=== PATIENT | female | born 1950 | race Caucasian/White ===

== ENCOUNTER 2016-07-20 14:31 | Emergency (ER) | payer OTHER ==
[~2016-07-20] VITALS: Ht 160 cm; Wt 67.5 kg
[~2016-07-20 14:31] MED LIST: ACYCLOVIR400 MG PO; ALLOPURINOL300 MG PO; ATORVASTATIN CA10 MG PO; LO-DOSE ASPIRIN81 M1 PO; ONCE DAILY1 EACH PO; VENLAFAXINE HCL75 M3 PO; VITAMIN D400 UNI1 PO
[2016-07-20 15:17] LABS: HEMATOCRIT 39.4 % (36.0-46.0); MCH 31.9 PG (29.0-34.0); MCHC 33.8 G/DL (30.0-36.0); MCV 94.5 FL (83-99); MEAN PLAT.VOLUME 8.3 uM^3 (9.5-12.4); PLATELET COUNT 241 K/uL (156-360); RBC DIS.WIDTH-CV 13.2 % (11.8-14.6); RBC DIS.WIDTH-SD 45.5 % (39-53); RED BLOOD COUNT 4.17 M/uL (3.80-5.20); WHITE BLOOD COUNT 4.7 K/uL (4.1-10.2)
[2016-07-20 15:27] LABS: CHLORIDE 105 mEq/L (99-109); POTASSIUM 3.9 mEq/L (3.7-5.4); SODIUM 141 mEq/L (136-147)
[2016-07-20 15:29] LABS: GLUCOSE 98 mg/dL (70-99)
[2016-07-20 15:30] LABS: ANION GAP 11 MEQ/L (2-14)
[2016-07-20 15:31] LABS: TOTAL BILIRUBIN 0.4 mg/dL (0.0-1.0)
[2016-07-20 15:33] LABS: ALKALINE PHOSPHATASE 49 IU/L (3-129); GFR ESTIMATE (CALCULATED) > 59 mL/min/
[2016-07-20 15:34] LABS: UREA NITROGEN (BUN) 8 mg/dL (9-23)
[2016-07-20 17:50] LABS: ADD MIUA? YES; BILIRUBIN NEGATIVE; BLOOD SMALL; COLOR STRAW ((YELLOW)); GLUCOSE (STRIP) NEGATIVE; KETONES 5; LEUKOCYTES TRACE; NITRITE NEGATIVE; PROTEIN (STRIP) NEGATIVE; SPECIFIC GRAVITY 1.004 (1.000-1.030); UROBILINOGEN 0.2 MG/DL (0.2-1.0)
[2016-07-20 17:53] LABS: BACTERIA NONE SEEN /HPF; EPITHELIAL CELLS RARE /HPF; MUCUS NONE SEEN /LPF; RED BLOOD CELLS 0-5 /HPF (0-5); UCUL ADDED? NO; WHITE BLOOD CELLS 0-5 /HPF (0-5)
[2016-07-20 18:08] VITALS: BP 120/59
== END 2016-07-20 18:09 | disposition home or self-care (01) ==
LOC: EME 14:31
DX: R68.2 Dry mouth, unspecified (principal); R63.0 Anorexia; G25.1 Drug-induced tremor; R11.0 Nausea; F19.982 Other psychoactive substance use, unspecified with psychoactive substance-induced sleep disorder; R35.0 Frequency of micturition; T43.215A Adverse effect of selective serotonin and norepinephrine reuptake inhibitors, initial encounter; F41.1 Generalized anxiety disorder; Z85.72 Personal history of non-Hodgkin lymphomas
CPT/HCPCS: 80053; 81003; 85027; 99281; 99284

== ENCOUNTER 2016-08-22 10:50 | Inpatient (IN) | payer OTHER ==
[~2016-08-22] VITALS: Ht 160 cm; Wt 67.0 kg
[2016-08-22 11:29] LABS: ADD MIUA? NO; BILIRUBIN NEGATIVE; BLOOD NEGATIVE; COLOR YELLOW ((YELLOW)); GLUCOSE (STRIP) NEGATIVE; KETONES NEGATIVE; LEUKOCYTES NEGATIVE; NITRITE NEGATIVE; PROTEIN (STRIP) NEGATIVE; SPECIFIC GRAVITY 1.005 (1.000-1.030); UCUL ADDED? NO; UROBILINOGEN 0.2 MG/DL (0.2-1.0)
[2016-08-22 11:38] LABS: AMPHETAMINE NEGATIVE (500 ng/mL); BARBITURATES NEGATIVE (200 ng/mL); BENZODIAZEPINES PRESUMPTIVE POSITIVE (150 ng/mL); COCAINE NEGATIVE (150 ng/mL); INTERNAL CONTROLS VALID? YES; METHADONE NEGATIVE (200 ng/mL); METHAMPHETAMINE NEGATIVE (500 ng/mL); OPIATES (MORPHINE) NEGATIVE (100 ng/mL); OXYCODONE NEGATIVE (100 ng/mL); PHENCYCLIDINE NEGATIVE (25 ng/mL); PROPOXYPHENE NEGATIVE (300 ng/mL); THC CANNABINOIDS NEGATIVE (50 ng/mL); TRICYCLIC ANTIDEPRESSANTS NEGATIVE (300 ng/mL)
[2016-08-22 11:39] LABS: ADD MEDTOX COMMENT Y
[2016-08-22 11:51] LABS: EOSINOPHIL (%) 0.8 % (0-5); HEMATOCRIT 40.2 % (36.0-46.0); IMMATURE GRANULOCYTE (%) 0.4 % (0.0-0.7); INSTRUMENT ABS NEUTROPHIL CT 3.9 K/uL; LYMPHOCYTE COUNT 0.3 K/uL (1.0-2.8); MCH 31.8 PG (29.0-34.0); MCHC 33.1 G/DL (30.0-36.0); MCV 96.2 FL (83-99); MEAN PLAT.VOLUME 8.6 uM^3 (9.5-12.4); MONOCYTE (%) 9.7 % (3-12); MONOCYTE COUNT 0.5 K/uL (0-0.8); NEUTROPHIL (%) 81.5 % (45-76); NEUTROPHIL COUNT 3.9 K/uL (1.8-6.4); PLATELET COUNT 223 K/uL (156-360); RBC DIS.WIDTH-CV 13.6 % (11.8-14.6); RBC DIS.WIDTH-SD 48.3 % (39-53); RED BLOOD COUNT 4.18 M/uL (3.80-5.20); WHITE BLOOD COUNT 4.7 K/uL (4.1-10.2)
[2016-08-22 12:00] LABS: CHLORIDE 107 mEq/L (99-109); POTASSIUM 4.5 mEq/L (3.7-5.4); SODIUM 139 mEq/L (136-147)
[2016-08-22 12:03] LABS: GLUCOSE 94 mg/dL (70-99)
[2016-08-22 12:04] LABS: ANION GAP 10 MEQ/L (2-14); TOTAL BILIRUBIN 0.4 mg/dL (0.0-1.0)
[2016-08-22 12:06] LABS: GFR ESTIMATE (CALCULATED) > 59 mL/min/; SERUM ETHYL ALCOHOL < 10 mg/dL
[2016-08-22 12:07] LABS: ALKALINE PHOSPHATASE 47 IU/L (3-129)
[2016-08-22 12:08] LABS: UREA NITROGEN (BUN) 9 mg/dL (9-23)
[2016-08-22 12:10] LABS: SALICYLATE < 5.0 MG/DL (15-30)
[2016-08-22 12:11] LABS: CREATINE KINASE 139 IU/L (1-294); TOTAL CK 139 IU/L (1-294)
[2016-08-22 12:12] LABS: TROP-I INTERPRETATION NEGATIVE; TROPONIN-I < 0.01 ng/mL (0.0-0.30)
[2016-08-22 12:16] LABS: CK-MB 2.6 ng/mL (0.0-4.9)
[2016-08-22 12:20] LABS: BENZODIAZEPINES QUANT VALUE 0 NG/ML; BENZODIAZEPINES, URINE SCREEN Negative (200 ng/mL)
[2016-08-22 16:30] VITALS: BP 115/64
[2016-08-22] MEDS ORDERED: ZOLOFT100 MG PO ×2 (17:00→17:12)
[2016-08-22] MEDS ORDERED: TRAZODONE HCL50 MG PO (17:13)
[2016-08-23 07:31] VITALS: BP 97/60
[2016-08-23 11:50] VITALS: BP 116/56
[2016-08-23 15:51] VITALS: BP 108/56
[2016-08-24 07:29] VITALS: BP 110/53
[2016-08-24 15:50] VITALS: BP 108/64
[2016-08-25 07:54] VITALS: BP 106/54
[2016-08-25] MEDS ORDERED: BUSPAR5 MG PO (10:09)
[2016-08-25] MEDS ORDERED: EFFEXOR XR37.5 MG PO ×2 (10:11→11:05)
[2016-08-25] MEDS ORDERED: AMBIEN10 MG PO (10:11)
== END 2016-08-25 13:14 | disposition home or self-care (01) | DRG 880 ==
LOC: EME 10:50 → 1WEST 15:37 → EDOF 15:37 → 1WEST 15:37
PROVIDERS: Emergency Medicine
DX: F41.1 Generalized anxiety disorder (principal); F32.9 Major depressive disorder, single episode, unspecified; R45.851 Suicidal ideations; Z85.72 Personal history of non-Hodgkin lymphomas; Z91.14 Patient's other noncompliance with medication regimen; Z92.21 Personal history of antineoplastic chemotherapy
CPT/HCPCS: 80053; 81003; 82550; 82553; 84484; 84999; 85025; 90839; 93005; 97150 GO; 97165 GO; 99281; 99284; G0480